=== PATIENT | male | born 2000 | race African-American/Black ===

== ENCOUNTER 2021-01-18 01:13 | Emergency (ER) | payer OTHER ==
[~2021-01-18] VITALS: Ht 182.8 cm; Wt 70.3 kg
--- NOTE | 2021-01-18 01:39 | ED Abdominal Pain ---
General Stated Complaint: VOMITING X-3 DAYS Source of Information: Patient Exam Limitations: No Limitations History of Present Illness Date Seen by Provider: January 18, 2021 Time Seen by Provider: 01:30 Initial Comments Patient is a 20-year-old male who presents to the emergency room with a chief complaint of abdominal pain, nausea and vomiting over the last 3 days. Patient states that he went to a track meet in [place] 3 days ago and afterwards became very nauseated and started having vomiting. Patient states he went to an emergency department there and was given some nausea medicines but they did not help. Patient states he is continued to have nausea and vomiting. No diarrhea. He states his last bowel movement was a couple of days ago. He thinks he is urinating a little bit less than normal. He is not able to hold down any food or fluids. He takes no medicines he has no chronic medical conditions. He is not a diabetic that he is aware of. All other review of systems reviewed and negative except as stated above. Timing/Duration: 2-3 Days Severity/Quality: Cramping Location: Generalized Abdomen Radiation: No Radiation Activities at Onset: None Associated Symptoms: Nausea/Vomiting Allergies and Home Medications Allergies Coded Allergies: No Known Drug Allergies (Unverified , 01/18/21) Patient Home Medication List Home Medication List Reviewed: Yes Review of Systems Review of Systems Constitutional: see HPI EENTM: No Symptoms Reported Respiratory: No Symptoms Reported Cardiovascular: No Symptoms Reported Gastrointestinal: Abdominal Pain, Nausea, Poor Appetite, Vomiting Genitourinary: Other (Decreased urination) Musculoskeletal: no symptoms reported Skin: no symptoms reported All Other Systems Reviewed Negative Unless Noted: Yes Physical Exam Vital Signs Vital Signs - First Documented 01/18/21 01:30 Temp 35.6 Pulse 60 Resp 18 B/P (MAP) 174/74 (107) Pulse Ox 99 O2 Delivery Room Air Capillary Refill : Height/Weight/BMI Height: '" Weight: lbs. oz. kg; BMI Method: General Appearance: WD/WN, mild distress HEENT: other (Dry oral mucosa) Neck: normal inspection Respiratory: lungs clear, normal breath sounds, no respiratory distress, no accessory muscle use Cardiovascular: regular rate, rhythm Gastrointestinal: abnormal bowel sounds (Hypoactive), guarding, tenderness Extremities: normal range of motion, non-tender, normal inspection Neurologic/Psychiatric: alert, normal mood/affect, oriented x 3 Skin: normal color, warm/dry Progress/Results/Core Measures Results/Orders Lab Results Laboratory Tests Test 01/18/21 01:40 01/18/21 03:12 Range/Units White Blood Count 12.2 H 4.3-11.0 10^3/uL Red Blood Count 5.35 4.30-5.52 10^6/uL Hemoglobin 14.7 13.3-17.7 g/dL Hematocrit 45 40-54 % Mean Corpuscular Volume 83 80-99 fL Mean Corpuscular Hemoglobin 28 25-34 pg Mean Corpuscular Hemoglobin Concent 33 32-36 g/dL Red Cell Distribution Width 12.5 10.0-14.5 % Platelet Count 492 H 130-400 10^3/uL Mean Platelet Volume 9.1 9.0-12.2 fL Immature Granulocyte % (Auto) 0 % Neutrophils (%) (Auto) 64 42-75 % Lymphocytes (%) (Auto) 27 12-44 % Monocytes (%) (Auto) 7 0-12 % Eosinophils (%) (Auto) 1 0-10 % Basophils (%) (Auto) 1 0-10 % Neutrophils # (Auto) 7.9 H 1.8-7.8 10^3/uL Lymphocytes # (Auto) 3.2 1.0-4.0 10^3/uL Monocytes # (Auto) 0.9 0.0-1.0 10^3/uL Eosinophils # (Auto) 0.1 0.0-0.3 10^3/uL Basophils # (Auto) 0.1 0.0-0.1 10^3/uL Immature Granulocyte # (Auto) 0.1 0.0-0.1 10^3/uL Sodium Level 136 135-145 MMOL/L Potassium Level 4.0 3.6-5.0 MMOL/L Chloride Level 97 L 98-107 MMOL/L Carbon Dioxide Level 25 21-32 MMOL/L Anion Gap 14 5-14 MMOL/L Blood Urea Nitrogen 18 7-18 MG/DL Creatinine 1.51 H 0.60-1.30 MG/DL Estimat Glomerular Filtration Rate > 60 BUN/Creatinine Ratio 12 Glucose Level 100 70-105 MG/DL Calcium Level 9.7 8.5-10.1 MG/DL Corrected Calcium 9.5 8.5-10.1 MG/DL Total Bilirubin 2.4 H 0.1-1.0 MG/DL Aspartate Amino Transf (AST/SGOT) 41 H 5-34 U/L Alanine Aminotransferase (ALT/SGPT) 42 0-55 U/L Alkaline Phosphatase 99 40-136 U/L Total Creatine Kinase 873 H 30-200 U/L Total Protein 7.9 6.4-8.2 GM/DL Albumin 4.3 3.2-4.5 GM/DL Urine Color YELLOW Urine Clarity CLEAR Urine pH 7.0 5-9 Urine Specific Alexander 1.020 1.016-1.022 Urine Protein NEGATIVE NEGATIVE Urine Glucose (UA) NEGATIVE NEGATIVE Urine Ketones 2+ H NEGATIVE Urine Nitrite NEGATIVE NEGATIVE Urine Bilirubin NEGATIVE NEGATIVE Urine Urobilinogen 2.0 < = 1.0 MG/DL Urine Leukocyte Esterase NEGATIVE NEGATIVE Urine RBC (Auto) NEGATIVE NEGATIVE Urine RBC NONE /HPF Urine WBC NONE /HPF Urine Squamous Epithelial Cells 0-2 /HPF Urine Crystals NONE /LPF Urine Bacteria NEGATIVE /HPF Urine Casts NONE /LPF Urine Mucus SMALL H /LPF Urine Culture Indicated NO My Orders Orders - ZAN VELASQUEZ MD Ed Iv/Invasive Line Start (01/18/21 01:36) Cbc With Automated Diff (01/18/21 01:36) Comprehensive Metabolic Panel (01/18/21 01:36) Creatine Kinase (01/18/21 01:36) Ua Culture If Indicated (01/18/21 01:36) Ns Iv 1000 Ml (Sodium Chloride 0.9%) (01/18/21 01:45) Ondansetron Injection (Zofran Injectio (01/18/21 01:45) Fentanyl Inj (Sublimaze Injection) (01/18/21 01:45) Ns Iv 1000 Ml (Sodium Chloride 0.9%) (01/18/21 02:30) Medications Given in ED Current Medications Medications Dose Ordered Sig/Cam Route Start Time Stop Time Status Last Admin Dose Admin Fentanyl Citrate 25 mcg ONCE ONCE IVP 01/18/21 01:45 01/18/21 01:46 DC 01/18/21 01:48 25 MCG Ondansetron HCl 8 mg ONCE ONCE IVP 01/18/21 01:45 01/18/21 01:46 DC 01/18/21 01:47 8 MG Vital Signs/I&O 01/18/21 01:30 Temp 35.6 Pulse 60 Resp 18 B/P (MAP) 174/74 (107) Pulse Ox 99 O2 Delivery Room Air Departure Impression Primary Impression: Dehydration Additional Impression: Acute nausea with nonbilious vomiting Disposition: HOME, SELF-CARE Condition: Stable Departure-Patient Inst. Decision time for Depature: 04:12 Referrals: [facility] (PCP/Family) Primary Care Physician Patient Instructions: Dehydration, Adult (DC) Add. Discharge Instructions: Use the Zofran every 8 hours as needed for nausea and vomiting. Drink plenty of fluids to stay well-hydrated. Follow-up with the [facility] in 1 to 2 days. Come back to the emergency room for any worsening symptoms of nausea, vomiting, fever pain or any other emergent concerns. Scripts Ondansetron (Ondansetron Odt) 4 Mg Tab.rapdis 4 MG PO Q8H PRN for NAUSEA/VOMITING, #15 TAB 0 Refills Prov: ZAN VELASQUEZ MD 01/18/21 ZAN VELASQUEZ MD January 18, 2021 01:39
[2021-01-18] MEDS ORDERED: ONDANSETRON 4 MG/2 ML (SDV) Z0FRAN IVP ONE (01:45)
[2021-01-18] MEDS ORDERED: fentaNYL INJ 100 MCG/2 ML AMP IVP ONE (01:45)
[2021-01-18] MEDS: NS IV 1000 ML 1,000 ML IV SCH ×2 (01:47→03:17)
[2021-01-18 01:49] LABS: BASOPHILS # (AUTO) 0.1 10^3/uL (0.0-0.1); BASOPHILS % (AUTO) 1 % (0-10); EOSINOPHILS # (AUTO) 0.1 10^3/uL (0.0-0.3); EOSINOPHILS % (AUTO) 1 % (0-10); HEMATOCRIT 45 % (40-54); HEMOGLOBIN 14.7 g/dL (13.3-17.7); LYMPHOCYTES # (AUTO) 3.2 10^3/uL (1.0-4.0); LYMPHOCYTES % (AUTO) 27 % (12-44); MEAN CORPUSCULAR HEMOGLOBIN 28 pg (25-34); MEAN CORPUSCULAR HGB CONC 33 g/dL (32-36); MEAN CORPUSCULAR VOLUME 83 fL (80-99); MEAN PLATELET VOLUME 9.1 fL (9.0-12.2); MONOCYTES # (AUTO) 0.9 10^3/uL (0.0-1.0); MONOCYTES % (AUTO) 7 % (0-12); NEUTROPHILS # (AUTO) 7.9 10^3/uL (1.8-7.8); NEUTROPHILS % (AUTO) 64 % (42-75); PLATELET COUNT 492 10^3/uL (130-400); WHITE BLOOD COUNT 12.2 10^3/uL (4.3-11.0)
[2021-01-18 01:56] LABS: ALBUMIN 4.3 GM/DL (3.2-4.5)
[2021-01-18 01:57] LABS: CHLORIDE 97 MMOL/L (98-107); SODIUM 136 MMOL/L (135-145)
[2021-01-18 01:58] LABS: CALCIUM 9.7 MG/DL (8.5-10.1)
[2021-01-18 01:59] LABS: GLUCOSE 100 MG/DL (70-105); TOTAL PROTEIN 7.9 GM/DL (6.4-8.2)
[2021-01-18 02:00] LABS: CARBON DIOXIDE 25 MMOL/L (21-32)
[2021-01-18 02:01] LABS: BILIRUBIN,TOTAL 2.4 MG/DL (0.1-1.0)
[2021-01-18 02:02] LABS: ALKALINE PHOSPHATASE 99 U/L (40-136)
[2021-01-18 02:03] LABS: CREATININE SERUM 1.51 MG/DL (0.60-1.30); GFR ESTIMATED > 60
[2021-01-18 02:04] LABS: BUN/CREATININE RATIO 12
[2021-01-18 02:05] LABS: ALANINE AMINOTRANSFERASE 42 U/L (0-55)
[2021-01-18 02:06] LABS: CREATINE KINASE 873 U/L (30-200)
[2021-01-18] MEDS ORDERED: NS IV 1000 ML 1,000 ML IV SCH (02:30)
[2021-01-18 03:23] LABS: BILIRUBIN,URINE NEGATIVE (NEGATIVE); CLARITY,URINE CLEAR; COLOR,URINE YELLOW; GLUCOSE, URINE (UA) NEGATIVE (NEGATIVE); KETONES,URINE 2+ (NEGATIVE); LEUKOCYTE ESTERASE ,URINE NEGATIVE (NEGATIVE); NITRITE,URINE NEGATIVE (NEGATIVE); PROTEIN,URINE NEGATIVE (NEGATIVE)
[2021-01-18 03:29] LABS: BACTERIA,URINE NEGATIVE /HPF; SQUAMOUS EPITHELIAL CELL,UR 0-2 /HPF
[2021-01-18] MEDS ORDERED: ONDA4TAB11 PO (04:14)
[2021-01-18 04:30] VITALS: BP 143/88
== END 2021-01-18 04:33 | disposition home or self-care (01) ==
LOC: ER 01:17
DX: E86.0 Dehydration (principal); R10.84 Generalized abdominal pain
CPT/HCPCS: 36415; 80053; 81000; 82550; 85025

== ENCOUNTER 2021-01-19 23:11 | Emergency (ER) | payer OTHER ==
[~2021-01-19] VITALS: Ht 182.9 cm; Wt 70.5 kg
[~2021-01-19 23:11] MED LIST: ONDA4TAB11 PO
--- NOTE | 2021-01-20 00:38 | ED Abdominal Pain ---
General Chief Complaint: Abdominal/GI Problems Stated Complaint: NAUSEA,VOMITING Source of Information: Patient Exam Limitations: No Limitations (AARON ANTONIO STUDENT) History of Present Illness Date Seen by Provider: January 20, 2021 Time Seen by Provider: 00:20 Initial Comments Pt presents to ED via private conveyance with complaint of nausea, vomiting, and abd pain. He states that it started on Saturday and he was seen at the [facility] where he was diagnosed with Cannabinoid Hyperemesis Syndrome. He complains of 10/10 periumbilical pain, denies radiation. Last bowel movement was Saturday. He has not been able to keep solids down since his symptoms started, but is able to drink fluids. He reports associated lightheadedness and SOB. Hot showers help alleviate his symptoms, but states that he didn't notice a diff erence with the medications given to him, which he can't recall. He last smoked marijuana prior to onset of symptoms on Saturday, and has a 2year history of smoking marijuana but no prior similar incidents. Timing/Duration: 5-6 Days Severity/Quality: Severe, Aching Location: Periumbilical Radiation: No Radiation Modifying Factors: Improves With Other (hot showers alleviate) Associated Symptoms: No Chest Pain, No Fever/Chills, No Headache; Nausea/Vomiting, Shortness of Air (AARON ANTONIO STUDENT) Allergies and Home Medications Allergies Coded Allergies: No Known Drug Allergies (Unverified , 01/18/21) Home Medications Ondansetron 4 Mg Tab.rapdis, 4 MG PO Q8H PRN for NAUSEA/VOMITING Prescribed by: ZAN VELASQUEZ on 01/18/21 0414 Promethazine HCl 25 Mg Tablet, 25 MG PO Q6H PRN for NAUSEA/VOMITING Prescribed by: NIKKI ARCEO on 01/20/21 0324 Patient Home Medication List Home Medication List Reviewed: Yes (AARON ANTONIO STUDENT) Review of Systems Review of Systems Constitutional: No chills, No fever; other (lightheadedness) EENTM: No Blurred Vision, No Double Vision, No Eye Pain, No Ear Pain Respiratory: Denies Cough; Shortness of Air Cardiovascular: Denies Chest Pain, Denies Edema; Lightheadedness; Denies P alpitations Gastrointestinal: Denies Abdomen Distended; Abdominal Pain, Constipated (last BM on Saturday, 5 days ago); Denies Diarrhea; Nausea, Vomiting Genitourinary: Frequency, Hematuria Musculoskeletal: No back pain, No joint pain, No muscle pain Skin: No change in color, No rash Psychiatric/Neurological: Denies Headache, Denies Numbness, Denies Paresthesia, Denies Tingling, Denies Weakness (AARON ANTONIO) All Other Systems Reviewed Negative Unless Noted: Yes (AARON ANTONIO) Past Qggjqsk-Iorlkb-Rphxuu Hx Past Med/Social Hx: Reviewed Nursing Past Med/Soc Hx (AARON ANTONIO) Patient Social History Recent Hopitalizations: No (AARON ANTONIO) Alcohol Use: Denies Use Smoking Status: Never a Smoker (NIKKI ARCEO) Immunizations Up To Date PED Vaccines UTD: Yes (AARON ANTONIO) Seasonal Allergies Seasonal Allergies: No (AARON ANTONIO) Past Medical History Surgeries: Yes (LEFT KNEE) Orthopedic Respiratory: No Cardiac: No Neurological: No Genitourinary: No Gastrointestinal: No Musculoskeletal: No Endocrine: No HEENT: No Cancer: No Psychosocial: No Blood Disorders: No (AARON ANTONIO) Physical Exam Vital Signs Vital Signs - First Documented 01/19/21 23:55 Temp 37.3 Pulse 71 Resp 18 B/P (MAP) 176/102 (126) Pulse Ox 100 O2 Delivery Room Air (NIKKI ARCEO) Vital Signs Capillary Refill : (AARON ANTONIO) Height/Weight/BMI Height: '" Weight: lbs. oz. kg; 21.00 BMI Method: General Appearance: WD/WN, mild distress HEENT: PERRL/EOMI, normal ENT inspection Neck: non-tender, full range of motion, supple, normal inspection Respiratory: chest non-tender, lungs clear, normal breath sounds, no respiratory distress, no accessory muscle use Peripheral Pulses: 2+ Dorsalis Pedis (R), 2+ Left Dors-Pedis (L), 2+ Radial Pulses (R), 2+ Radial Pulses (L) Gastrointestinal: normal bowel sounds, guarding, tenderness (periumbilical) Rectal: deferred Extremities: normal range of motion, non-tender, normal inspection, normal capillary refill Back: normal inspection, no CVA tenderness, no vertebral tenderness Neurologic/Psychiatric: no motor/sensory deficits, alert, normal mood/affect, oriented x 3 Skin: normal color, warm/dry Lymphatic: no adenopathy (AARON ANTONIO MED STUDENT) Progress/Results/Core Measures Results/Orders Lab Results Laboratory Tests Test 01/20/21 00:20 Range/Units White Blood Count 9.8 4.3-11.0 10^3/uL Red Blood Count 5.56 H 4.30-5.52 10^6/uL Hemoglobin 15.3 13.3-17.7 g/dL Hematocrit 47 40-54 % Mean Corpuscular Volume 84 80-99 fL Mean Corpuscular Hemoglobin 28 25-34 pg Mean Corpuscular Hemoglobin Concent 33 32-36 g/dL Red Cell Distribution Width 12.4 10.0-14.5 % Platelet Count 469 H 130-400 10^3/uL Mean Platelet Volume 10.3 9.0-12.2 fL Immature Granulocyte % (Auto) 0 % Neutrophils (%) (Auto) 75 42-75 % Lymphocytes (%) (Auto) 20 12-44 % Monocytes (%) (Auto) 4 0-12 % Eosinophils (%) (Auto) 0 0-10 % Basophils (%) (Auto) 0 0-10 % Neutrophils # (Auto) 7.3 1.8-7.8 10^3/uL Lymphocytes # (Auto) 1.9 1.0-4.0 10^3/uL Monocytes # (Auto) 0.4 0.0-1.0 10^3/uL Eosinophils # (Auto) 0.0 0.0-0.3 10^3/uL Basophils # (Auto) 0.0 0.0-0.1 10^3/uL Immature Granulocyte # (Auto) 0.0 0.0-0.1 10^3/uL Sodium Level 139 135-145 MMOL/L Potassium Level 3.7 3.6-5.0 MMOL/L Chloride Level 100 98-107 MMOL/L Carbon Dioxide Level 24 21-32 MMOL/L Anion Gap 15 H 5-14 MMOL/L Blood Urea Nitrogen 11 7-18 MG/DL Creatinine 1.43 H 0.60-1.30 MG/DL Estimat Glomerular Filtration Rate > 60 BUN/Creatinine Ratio 8 Glucose Level 89 70-105 MG/DL Calcium Level 10.0 8.5-10.1 MG/DL Corrected Calcium 8.5-10.1 MG/DL Total Bilirubin 2.8 H 0.1-1.0 MG/DL Aspartate Amino Transf (AST/SGOT) 117 H 5-34 U/L Alanine Aminotransferase (ALT/SGPT) 59 H 0-55 U/L Alkaline Phosphatase 103 40-136 U/L C-Reactive Protein High Sensitivity 0.10 0.00-0.50 MG/DL Total Protein 8.8 H 6.4-8.2 GM/DL Albumin 4.8 H 3.2-4.5 GM/DL Lipase 11 8-78 U/L (NIKKI ARCEO) My Orders Orders - NIKKI ARCEO Cbc With Automated Diff (01/20/21 01:09) Comprehensive Metabolic Panel (01/20/21 01:09) Hs C Reactive Protein (01/20/21 01:09) Lipase (01/20/21 01:09) Ed Iv/Invasive Line Start (01/20/21 01:09) Lactated Ringers (Lr 1000 Ml Iv Solution (01/20/21 01:15) Ondansetron Injection (Zofran Injectio (01/20/21 01:15) Fentanyl Inj (Sublimaze Injection) (01/20/21 01:30) Ct Abdomen/Pelvis W (01/20/21 01:22) Morphine Injection (Morphine Injection (01/20/21 01:39) Iohexol Injection (Omnipaque 350 Mg/Ml 1 (01/20/21 02:00) Received Contrast (Hold Metformin- Contr (01/20/21 02:00) Sodium Chloride Flush (Catheter Flush Sy (01/20/21 02:00) Ns (Ivpb) (Sodium Chloride 0.9% Ivpb Bag (01/20/21 02:00) (NIKKI ARCEO) Medications Given in ED Current Medications Medications Dose Ordered Sig/Cam Route Start Time Stop Time Status Last Admin Dose Admin Fentanyl Citrate 50 mcg ONCE ONCE IVP 01/20/21 01:30 01/20/21 01:31 DC 01/20/21 01:31 50 MCG Iohexol 100 ml ONCE ONCE IV 01/20/21 02:00 01/20/21 02:01 DC 01/20/21 02:02 88 ML Lactated Ringer's 1,000 ml @ 0 mls/hr Q0M ONCE IV 01/20/21 01:15 01/20/21 01:16 DC 01/20/21 01:15 0 MLS/HR Ondansetron HCl 8 mg ONCE ONCE IVP 01/20/21 01:15 01/20/21 01:16 DC 01/20/21 01:15 8 MG Sodium Chloride 10 ml NEEDED PRN IV 01/20/21 02:00 01/20/21 03:45 DC 01/20/21 02:02 10 ML Sodium Chloride 100 ml ONCE ONCE IV 01/20/21 02:00 01/20/21 02:01 DC 01/20/21 02:02 80 ML (NIKKI ARCEO) Vital Signs/I&O 01/19/21 01/20/21 23:55 03:40 Temp 37.3 36.9 Pulse 71 56 Resp 18 15 B/P (MAP) 176/102 (126) 130/66 (126) Pulse Ox 100 99 O2 Delivery Room Air Room Air (NIKKI RACEO) Progress Progress Note #1: Time: 01:20 Progress Note I attest that 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 Patient has 10 of 10 pain periumbilical going on for the past 5days despite multiple visits to ERs and the [facility]. While he does have the confounding use of cannabis and has been labeled with cannabis hyperemesis syndrome he is having some periumbilical tenderness and significant malaise and complaint of chills so I would like to go ahead and complete some labs including a lipase and get a CT of his abdomen and pelvis. 50 mcg of fentanyl as well as 8 mg Zofran and a liter of lactated Ringer's to start. Differential includes appendicitis, bowel less likely . Progress Note #2: Time: 03:21 Progress Note After the initial dose of pain medicine he is not having any nausea pain or symptoms. He is comfortable and ready to go home. He is in no material deterioration during his ER stay. We did detect that his bilirubin is mildly elevated and suggested him to follow-up with Dr. Buckley to have his gallbladder examined. We did discuss that he could still have some viral gastroenteritis versus a cannabis hyperemesis syndrome and will send him on some Phenergan since the Zofran is not helping. (NIKKI ARCEO) Diagnostic Imaging Diagonstic Imaging: CT Plain Films/CT/US/NM/MRI: abdomen, pelvis Comments No acute abnormality CT abdomen pelvis. Reviewed: Reviewed [place] Study, Reviewed by Me (NIKKI ARCEO) Departure Impression Primary Impression: Abdominal pain Qualified Codes: R10.33 - Periumbilical pain Disposition: HOME, SELF-CARE Condition: Stable Departure-Patient Inst. Decision time for Depature: 03:15 (NIKKI ARCEO) Referrals: TIFFANY BUCKLEY DO [facility] (PCP) Primary Care Physician Patient Instructions: Abdominal Pain, Adult ED Add. Discharge Instructions: You could not discover anything emergently dangerous about your abdominal pain tonight. Possibilities include a viral gastroenteritis, cannabis hyperemesis syndrome, your gallbladder. I would recommend that you stick to a bland diet with lots of fluids to drink. Avoid dairy, fats and spicy foods for the next couple weeks. Call Dr. Buckley, general surgery at his clinic this morning and request follow- up appointment next week to further work-up your symptoms in the clinic. Pantoprazole 40 mg daily. Zofran as prescribed. Phenergan 1 tablet every 6 hours as necessary for breakthrough nausea. It may cause some drowsiness. If you have pain try Rolaids, Tums, Maalox, Mylanta etc. Tylenol and Motrin as necessary for pain. All discharge instructions reviewed with patient and/or family. Voiced understanding. Scripts Promethazine HCl (Promethazine Tablet) 25 Mg Tablet 25 MG PO Q6H PRN for NAUSEA/VOMITING, #15 TAB 0 Refills Prov: NIKKI ARCEO 01/20/21 Work/School Note: Work Release Form Date Seen in the Emergency Department: January 20, 2021 Return to Work: January 23, 2021 Restrictions: No Restrictions Copy Copies To 1: TIFFANY BUCKLEY J[facility]NN[facility] ST[facility] January 20, 2021 00:38 NIKKI ARCEO January 20, 2021 01:21
[2021-01-20] MEDS ORDERED: ONDANSETRON 4 MG/2 ML (SDV) Z0FRAN IVP ONE (01:15)
[2021-01-20] MEDS ORDERED: LACTATED RINGERS 1,000 ML IV ONE (01:15)
[2021-01-20 01:16] LABS: BASOPHILS % (AUTO) 0 % (0-10); EOSINOPHILS % (AUTO) 0 % (0-10); HEMATOCRIT 47 % (40-54); HEMOGLOBIN 15.3 g/dL (13.3-17.7); LYMPHOCYTES # (AUTO) 1.9 10^3/uL (1.0-4.0); LYMPHOCYTES % (AUTO) 20 % (12-44); MEAN CORPUSCULAR HEMOGLOBIN 28 pg (25-34); MEAN CORPUSCULAR HGB CONC 33 g/dL (32-36); MEAN CORPUSCULAR VOLUME 84 fL (80-99); MEAN PLATELET VOLUME 10.3 fL (9.0-12.2); MONOCYTES # (AUTO) 0.4 10^3/uL (0.0-1.0); MONOCYTES % (AUTO) 4 % (0-12); NEUTROPHILS # (AUTO) 7.3 10^3/uL (1.8-7.8); NEUTROPHILS % (AUTO) 75 % (42-75); PLATELET COUNT 469 10^3/uL (130-400); WHITE BLOOD COUNT 9.8 10^3/uL (4.3-11.0)
[2021-01-20 01:18] LABS: ALBUMIN 4.8 GM/DL (3.2-4.5); CHLORIDE 100 MMOL/L (98-107); POTASSIUM 3.7 MMOL/L (3.6-5.0); SODIUM 139 MMOL/L (135-145)
[2021-01-20 01:20] LABS: GLUCOSE 89 MG/DL (70-105)
[2021-01-20 01:21] LABS: TOTAL PROTEIN 8.8 GM/DL (6.4-8.2)
[2021-01-20 01:22] LABS: BILIRUBIN,TOTAL 2.8 MG/DL (0.1-1.0); CARBON DIOXIDE 24 MMOL/L (21-32)
[2021-01-20 01:24] LABS: ALKALINE PHOSPHATASE 103 U/L (40-136); CREATININE SERUM 1.43 MG/DL (0.60-1.30); GFR ESTIMATED > 60
[2021-01-20 01:25] LABS: BUN/CREATININE RATIO 8
[2021-01-20 01:27] LABS: ALANINE AMINOTRANSFERASE 59 U/L (0-55); LIPASE 11 U/L (8-78)
[2021-01-20] MEDS ORDERED: fentaNYL INJ 100 MCG/2 ML AMP IVP ONE (01:30)
[2021-01-20] MEDS ORDERED: morphine INJ 10 MG/ML 1ML (SYR OR VIAL) IVP STA (01:39)
[2021-01-20] MEDS ORDERED: NS 100 ML (IVPB) BAG IV ONE (02:00)
[2021-01-20] MEDS ORDERED: IOHEXOL 350 MG/ML 100 ML (OMNIPAQUE 350) VIAL IV ONE (02:00)
[2021-01-20] MEDS ORDERED: HOLD METFORMIN - RECEIVED CONTRAST 20 ML VIAL IV SCH (02:00)
[2021-01-20] MEDS ORDERED: CATHETER FLUSH 10 ML SYR IV PRN (02:00)
[2021-01-20] MEDS ORDERED: PROM25TA14 PO (03:24)
[2021-01-20 03:40] VITALS: BP 130/66
--- NOTE | 2021-01-20 06:55 | Diagnostic Imaging Report ---
PROCEDURE: CT abdomen and pelvis with contrast. TECHNIQUE: Multiple contiguous axial images were obtained through the abdomen and pelvis after administration of intravenous contrast. Auto Exposure Controls were utilized during the CT exam to meet ALARA standards for radiation dose reduction. All CT scans use one or more of the following dose optimizing techniques: automated exposure control, MA and/or KvP adjustment based on patient size and exam type or iterative reconstruction. DATE: January 20, 2021. COMPARISON: None. INDICATION: 20-year-old male, abdominal pain, nausea, vomiting. Periumbilical pain. FINDINGS: The visualized portions of the lung bases are clear. The heart is not enlarged. There is no pericardial effusion. The liver is unremarkable in size and contour. There is no identified focal liver lesion. The gallbladder is unremarkable. There is no biliary ductal dilation. The main pancreatic duct is not abnormally dilated. Unremarkable appearance of the pancreatic parenchyma. The spleen is normal in size. The adrenal glands are unremarkable. Unremarkable appearance of the renal parenchyma. The urinary collecting systems are not distended. There is no identified renal or ureteral stone. Urinary bladder is unremarkable. Evaluation is difficult given the paucity of mesenteric fat and poor contrast. Differential is between structures. There are no grossly distended segments of bowel. There is no identified free intraperitoneal air. There is no visualized drainable fluid collection or sizable volume ascites. The appendix is not well seen. There is no identified abnormally enlarged lymph node in the abdomen or pelvis meeting CT size criteria for adenopathy. This is difficult to evaluate given the paucity of mesenteric fat. There is no identified acute bony abnormality. IMPRESSION: CT ABDOMEN AND PELVIS. 1. No identified acute abnormality in the abdomen or pelvis. 2. Evaluation is somewhat limited given the paucity of mesenteric fat. Dictated by: Dictated on workstation # [id number]
== END 2021-01-20 03:45 | disposition home or self-care (01) ==
LOC: EDUNIT# 23:11 → ER 23:13
DX: R10.33 Periumbilical pain (principal); R11.2 Nausea with vomiting, unspecified; R17 Unspecified jaundice
CPT/HCPCS: 36415; 74177; 80053; 83690; 85025; 86141

== ENCOUNTER 2021-01-21 08:16 | Observation (INO) | payer OTHER ==
[~2021-01-21] VITALS: Ht 188 cm; Wt 68.1 kg
[~2021-01-21 08:16] MED LIST changes: +PROM25TA14 PO
[2021-01-21] MEDS ORDERED: fentaNYL INJ 100 MCG/2 ML AMP IVP STA (08:52)
[2021-01-21] MEDS ORDERED: ONDANSETRON 4 MG/2 ML (SDV) Z0FRAN IVP ONE (09:00)
[2021-01-21] MEDS ORDERED: LACTATED RINGERS 1,000 ML IV ONE (09:00)
--- NOTE | 2021-01-21 09:04 | ED Abdominal Pain ---
General Chief Complaint: Abdominal/GI Problems Stated Complaint: STOMACH PAIN Nursing Triage Note: Patient states he has been vomiting for a week. States this began Saturday and since he has been experiencing difficulty sleeping and can't keep anything down. Sepsis Screen: No Definite Risk Source of Information: Patient Exam Limitations: No Limitations History of Present Illness Date Seen by Provider: January 21, 2021 Time Seen by Provider: 08:38 Initial Comments Here with report of continuing nausea and vomiting that has been going on since last Saturday. This is his third visit. States he is unable to keep anything down and having a really tough week. Has had previous labs and CT scan. CT scan did not reveal any significant abnormalities. There was concern that this may be related to cannabis hyperemesis syndrome as he has been previously a daily marijuana user. He is not currently doing that now and has not this week. Denies blood in his urine or stool. States he is not really able to eat. He is not able to drink well. Denies fever chills. Denies breathing problems or pain otherwise. He is hoping for admission as he states he has not been able to tolerate this at home. Timing/Duration: 1 Week, Constant, Getting Worse Severity/Quality: Moderate, Burning Location: Generalized Abdomen Radiation: No Radiation Activities at Onset: None Modifying Factors: Worsens With Eating; Improves With Vomiting Associated Symptoms: No Back Pain, No Chest Pain, No Fever/Chills; Heartburn, Nausea/Vomiting; No Shortness of Air, No Swelling/Mass in Abdomen; Weakness Allergies and Home Medications Allergies Coded Allergies: No Known Drug Allergies (Unverified , 01/18/21) Home Medications Ondansetron 4 Mg Tab.rapdis, 4 MG PO Q8H PRN for NAUSEA/VOMITING Prescribed by: ZAN VELASQUEZ on 01/18/21 0414 Promethazine HCl 25 Mg Tablet, 25 MG PO Q6H PRN for NAUSEA/VOMITING Prescribed by: NIKKI ARCEO on 01/20/21 0324 Patient Home Medication List Home Medication List Reviewed: Yes Review of Systems Review of Systems Constitutional: see HPI; No chills, No fever EENTM: No Nose Congestion, No Throat Pain Respiratory: Denies Cough, Denies Shortness of Air Cardiovascular: Denies Chest Pain, Denies Edema Gastrointestinal: Abdominal Pain, Nausea, Vomiting Genitourinary: No Symptoms Reported Musculoskeletal: no symptoms reported Skin: no symptoms reported All Other Systems Reviewed Negative Unless Noted: Yes Past [id number] Hx Past Med/Social Hx: Reviewed Nursing Past Med/Soc Hx Patient Social History Alcohol Use: Denies Use Drug of Choice: THC Smoking Status: Never a Smoker 2nd Hand Smoke Exposure: No Recent Infectious Disease Expo: No Recent Hopitalizations: No Immunizations Up To Date PED Vaccines UTD: Yes Seasonal Allergies Seasonal Allergies: No Past Medical History Surgeries: Yes (LEFT KNEE) Orthopedic Respiratory: No Cardiac: No Neurological: No Genitourinary: No Gastrointestinal: No Musculoskeletal: No Endocrine: No HEENT: No Cancer: No Psychosocial: No Blood Disorders: No Family Medical History Reviewed Nursing Family Hx Physical Exam Vital Signs Vital Signs - First Documented 01/21/21 08:45 Temp 35.8 Pulse 67 Resp 14 B/P (MAP) 156/106 (123) Pulse Ox 98 O2 Delivery Room Air Capillary Refill : Less Than 3 Seconds Height/Weight/BMI Height: '" Weight: lbs. oz. kg; 21.00 BMI Method: General Appearance: WD/WN, no apparent distress HEENT: PERRL/EOMI, pharynx normal Neck: full range of motion, supple Respiratory: lungs clear, normal breath sounds Cardiovascular: regular rate, rhythm, no murmur Peripheral Pulses: 2+ Dorsalis Pedis (R), 2+ Left Dors-Pedis (L), 2+ Radial Pulses (R), 2+ Radial Pulses (L) Gastrointestinal: soft; No guarding, No rebound; tenderness (Mild diffuse) Extremities: non-tender, normal inspection Back: normal inspection, no CVA tenderness, no vertebral tenderness Neurologic/Psychiatric: alert, oriented x 3 Skin: normal color, warm/dry Progress/Results/Core Measures Results/Orders Lab Results Laboratory Tests Test 01/21/21 08:40 01/21/21 09:38 Range/Units White Blood Count 6.9 4.3-11.0 10^3/uL Red Blood Count 5.65 H 4.30-5.52 10^6/uL Hemoglobin 15.6 13.3-17.7 g/dL Hematocrit 47 40-54 % Mean Corpuscular Volume 83 80-99 fL Mean Corpuscular Hemoglobin 28 25-34 pg Mean Corpuscular Hemoglobin Concent 33 32-36 g/dL Red Cell Distribution Width 12.6 10.0-14.5 % Platelet Count 469 H 130-400 10^3/uL Mean Platelet Volume 9.8 9.0-12.2 fL Immature Granulocyte % (Auto) 0 % Neutrophils (%) (Auto) 78 H 42-75 % Lymphocytes (%) (Auto) 18 12-44 % Monocytes (%) (Auto) 3 0-12 % Eosinophils (%) (Auto) 0 0-10 % Basophils (%) (Auto) 0 0-10 % Neutrophils # (Auto) 5.4 1.8-7.8 10^3/uL Lymphocytes # (Auto) 1.3 1.0-4.0 10^3/uL Monocytes # (Auto) 0.2 0.0-1.0 10^3/uL Eosinophils # (Auto) 0.0 0.0-0.3 10^3/uL Basophils # (Auto) 0.0 0.0-0.1 10^3/uL Immature Granulocyte # (Auto) 0.0 0.0-0.1 10^3/uL Sodium Level 137 135-145 MMOL/L Potassium Level 3.6 3.6-5.0 MMOL/L Chloride Level 99 98-107 MMOL/L Carbon Dioxide Level 25 21-32 MMOL/L Anion Gap 13 5-14 MMOL/L Blood Urea Nitrogen 10 7-18 MG/DL Creatinine 1.51 H 0.60-1.30 MG/DL Estimat Glomerular Filtration Rate > 60 BUN/Creatinine Ratio 7 Glucose Level 96 70-105 MG/DL Calcium Level 9.8 8.5-10.1 MG/DL Corrected Calcium 8.5-10.1 MG/DL Magnesium Level 1.9 1.6-2.4 MG/DL Total Bilirubin 2.9 H 0.1-1.0 MG/DL Aspartate Amino Transf (AST/SGOT) 50 H 5-34 U/L Alanine Aminotransferase (ALT/SGPT) 49 0-55 U/L Alkaline Phosphatase 98 40-136 U/L Total Protein 8.3 H 6.4-8.2 GM/DL Albumin 4.6 H 3.2-4.5 GM/DL Urine Color YELLOW Urine Clarity CLEAR Urine pH 8.5 5-9 Urine Specific [place] 1.020 1.016-1.022 Urine Protein NEGATIVE NEGATIVE Urine Glucose (UA) NEGATIVE NEGATIVE Urine Ketones 2+ H NEGATIVE Urine Nitrite NEGATIVE NEGATIVE Urine Bilirubin NEGATIVE NEGATIVE Urine Urobilinogen 1.0 < = 1.0 MG/DL Urine Leukocyte Esterase NEGATIVE NEGATIVE Urine RBC (Auto) NEGATIVE NEGATIVE Urine RBC RARE /HPF Urine WBC NONE /HPF Urine Squamous Epithelial Cells NONE /HPF Urine Crystals NONE /LPF Urine Bacteria NEGATIVE /HPF Urine Casts NONE /LPF Urine Mucus NEGATIVE /LPF Urine Culture Indicated NO My Orders Orders - RANULFO MUHAMMAD MD Cbc With Automated Diff (01/21/21 08:52) Comprehensive Metabolic Panel (01/21/21 08:52) Magnesium (01/21/21 08:52) Ua Culture If Indicated (01/21/21 08:52) Ed Iv/Invasive Line Start (01/21/21 08:52) Lactated Ringers (Lr 1000 Ml Iv Solution (01/21/21 09:00) Ondansetron Injection (Zofran Injectio (01/21/21 09:00) Fentanyl Inj (Sublimaze Injection) (01/21/21 08:52) Pantoprazole Injection (Protonix Injecti (01/21/21 10:15) Medications Given in ED Current Medications Medications Dose Ordered Sig/Cam Route Start Time Stop Time Status Last Admin Dose Admin Lactated Ringer's 1,000 ml @ 0 mls/hr Q0M ONCE IV 01/21/21 09:00 01/21/21 09:01 DC 01/21/21 08:58 0 MLS/HR Ondansetron HCl 4 mg ONCE ONCE IVP 01/21/21 09:00 01/21/21 09:01 DC 01/21/21 08:58 4 MG Pantoprazole 40 mg ONCE ONCE IV 01/21/21 10:15 01/21/21 10:16 DC 01/21/21 10:18 40 MG Vital Signs/I&O 01/21/21 08:45 Temp 35.8 Pulse 67 Resp 14 B/P (MAP) 156/106 (123) Pulse Ox 98 O2 Delivery Room Air Blood Pressure Mean: 123 Progress Progress Note : Progress Note Seen and evaluated. IV, labs and UA ordered. I have reviewed previous visits including CT scan and labs. We will give LR 1 L bolus as well as Zofran 4 mg IV and fentanyl 50 mcg IV. Monitor patient. 1007: Patient's total bili is now up to 2.9. CBC is normal otherwise. Creatinine slightly elevated at 1.51. Urine does show ketones. I do believe dehydration is continuing as well as the vomiting given current lab findings. I did discuss the case with Dr. Gallagher. She accepts patient for admission, observation status and we will continue hydration with D5 NS. Protonix 40 mg IV ordered now. This was discussed with the patient who agrees with the plan and is appreciative of the admission as he was quite concerned about going home. Departure Communication (Admissions) Time/Spoke to Admitting Phy: 10:07 Impression Primary Impression: Dehydration Additional Impression: Cannabis hyperemesis syndrome concurrent with and due to cannabis abuse Disposition: ADMITTED INPATIENT Condition: Stable Admissions Decision to Admit Reason: Admit from ER (General) Decision to Admit/Date: January 21, 2021 Time/Decision to Admit Time: 10:07 Departure-Patient Inst. Referrals: [facility] (PCP/Family) Primary Care Physician RANULFO MUHAMMAD MD January 21, 2021 09:04
[2021-01-21 09:09] LABS: BASOPHILS % (AUTO) 0 % (0-10); EOSINOPHILS % (AUTO) 0 % (0-10); HEMATOCRIT 47 % (40-54); HEMOGLOBIN 15.6 g/dL (13.3-17.7); LYMPHOCYTES # (AUTO) 1.3 10^3/uL (1.0-4.0); LYMPHOCYTES % (AUTO) 18 % (12-44); MEAN CORPUSCULAR HEMOGLOBIN 28 pg (25-34); MEAN CORPUSCULAR HGB CONC 33 g/dL (32-36); MEAN CORPUSCULAR VOLUME 83 fL (80-99); MEAN PLATELET VOLUME 9.8 fL (9.0-12.2); MONOCYTES # (AUTO) 0.2 10^3/uL (0.0-1.0); MONOCYTES % (AUTO) 3 % (0-12); NEUTROPHILS # (AUTO) 5.4 10^3/uL (1.8-7.8); NEUTROPHILS % (AUTO) 78 % (42-75); PLATELET COUNT 469 10^3/uL (130-400); WHITE BLOOD COUNT 6.9 10^3/uL (4.3-11.0)
[2021-01-21 09:13] LABS: ALBUMIN 4.6 GM/DL (3.2-4.5); CHLORIDE 99 MMOL/L (98-107); POTASSIUM 3.6 MMOL/L (3.6-5.0); SODIUM 137 MMOL/L (135-145)
[2021-01-21 09:14] LABS: CALCIUM 9.8 MG/DL (8.5-10.1)
[2021-01-21 09:15] LABS: GLUCOSE 96 MG/DL (70-105)
[2021-01-21 09:16] LABS: TOTAL PROTEIN 8.3 GM/DL (6.4-8.2)
[2021-01-21 09:17] LABS: BILIRUBIN,TOTAL 2.9 MG/DL (0.1-1.0); CARBON DIOXIDE 25 MMOL/L (21-32)
[2021-01-21 09:19] LABS: ALKALINE PHOSPHATASE 98 U/L (40-136); CREATININE SERUM 1.51 MG/DL (0.60-1.30); GFR ESTIMATED > 60
[2021-01-21 09:20] LABS: BUN/CREATININE RATIO 7
[2021-01-21 09:22] LABS: ALANINE AMINOTRANSFERASE 49 U/L (0-55); MAGNESIUM 1.9 MG/DL (1.6-2.4)
[2021-01-21 09:47] LABS: BILIRUBIN,URINE NEGATIVE (NEGATIVE); CLARITY,URINE CLEAR; COLOR,URINE YELLOW; GLUCOSE, URINE (UA) NEGATIVE (NEGATIVE); KETONES,URINE 2+ (NEGATIVE); LEUKOCYTE ESTERASE ,URINE NEGATIVE (NEGATIVE); NITRITE,URINE NEGATIVE (NEGATIVE); PH,URINE 8.5 (5-9); PROTEIN,URINE NEGATIVE (NEGATIVE)
[2021-01-21 09:57] LABS: BACTERIA,URINE NEGATIVE /HPF; RBC,URINE RARE /HPF
[2021-01-21] MEDS ORDERED: PANTOPRAZOLE 40 MG (PROTONIX) VIAL IV ONE (10:15)
[2021-01-21 11:38] VITALS: BP 173/97
--- NOTE | 2021-01-21 12:14 | History & Physical-Hospitalist ---
History of Present Illness HPI/Chief Complaint Pt is a 20yoAAM with no significant past medical history who presented to the ER due to nausea and vomiting. This has been going on for about a week now and he has been seen in the ER 3 times this week already. He has been given IVF and improved in the ER and has been compliant with her zofran and phenergan but has still be unable to keep anything down. He has a history of daily marijuana use concerning for cannabis hyperemesis syndrome. He states he has been taking hot showers which have helped some too. He did have a CT of his abdomen on his first ER visit and this was unremarkable. He is being admitted for fluids for dehydration. Source: patient Date Seen 01/21/21 Time Seen by a Provider: 12:09 Attending Physician Ashlee Gallagher MD [facility] Referring Physician Date of Admission January 21, 2021 at 10:21 Home Medications & Allergies Home Medications Reviewed patient Home Medication Reconciliation performed by pharmacy medication reconciliations voice and data technician and/or nursing. Patients Allergies have been reviewed. Allergies Allergies Coded Allergies No Known Drug Allergies (Unverified01/18/21) Past Medical/Social/Family Hx Patient Social History Marrital Status: single Employed/Student: student, full-time Smoking Status: Never a Smoker Substance type: Marijuana Substance frequency: Daily (with the exception of the last week) Past Medical History None Family Medical History Family Hx: None Review of Systems Constitutional: No chills, No fever EENTM: no symptoms reported Respiratory: No cough, No short of breath Cardiovascular: No chest pain, No edema, No palpitations Gastrointestinal: abdominal pain; No hematemesis; nausea, vomiting Genitourinary: no symptoms reported Musculoskeletal: no symptoms reported Skin: no symptoms reported Psychiatric/Neurological: No Symptoms Reported Physical Exam Physical Exam Vital Signs Vital Signs - First Documented 01/21/21 08:45 Temp 35.8 Pulse 67 Resp 14 B/P (MAP) 156/106 (123) Pulse Ox 98 O2 Delivery Room Air Capillary Refill : Less Than 3 Seconds Height, Weight, BMI Height: '" Weight: lbs. oz. kg; 20.38 BMI Method: General Appearance: No Apparent Distress (but appears to not feel well), WD/WN, Thin HEENT: PERRL/EOMI; No Scleral Icterus (L), No Scleral Icterus (R); Other (dry mucous membranes) Neck: Normal Inspection, Supple Respiratory: Lungs Clear, No Accessory Muscle Use, No Respiratory Distress Cardiovascular: Regular Rate, Rhythm, No Murmur Gastrointestinal: Normal Bowel Sounds, Non Tender, Soft Extremity: Normal Capillary Refill, No Calf Tenderness, No Pedal Edema Neurologic/Psychiatric: Alert, Oriented x3 Skin: Normal Color, Warm/Dry Results Results/Procedures Labs Laboratory Tests 01/21/21 08:40 Patient resulted labs reviewed. Imaging: Reviewed Imaging Report (FROM 01/20) Imaging [facility] [place] NAME: JOANNA ANDERS [employer] REC#: [id number] PT STATUS: DEP ER : 2000 PHYSICIAN: NIKKI ARCEO MD ADMIT DATE: 01/19/21/ER Signed Date of Exam:01/20/21 CT ABDOMEN/PELVIS W PROCEDURE: CT abdomen and pelvis with contrast. TECHNIQUE: Multiple contiguous axial images were obtained through the abdomen and pelvis after administration of intravenous contrast. Auto Exposure Controls were utilized during the CT exam to meet ALARA standards for radiation dose reduction. All CT scans use one or more of the following dose optimizing techniques: automated exposure control, MA and/or KvP adjustment based on patient size and exam type or iterative reconstruction. DATE: January 20, 2021. COMPARISON: None. INDICATION: 20-year-old male, abdominal pain, nausea, vomiting. Periumbilical pain. FINDINGS: The visualized portions of the lung bases are clear. The heart is not enlarged. There is no pericardial effusion. The liver is unremarkable in size and contour. There is no identified focal liver lesion. The gallbladder is unremarkable. There is no biliary ductal dilation. The main pancreatic duct is not abnormally dilated. Unremarkable appearance of the pancreatic parenchyma. The spleen is normal in size. The adrenal glands are unremarkable. Unremarkable appearance of the renal parenchyma. The urinary collecting systems are not distended. There is no identified renal or ureteral stone. Urinary bladder is unremarkable. Evaluation is difficult given the paucity of mesenteric fat and poor contrast. Differential is between structures. There are no grossly distended segments of bowel. There is no identified free intraperitoneal air. There is no visualized drainable fluid collection or sizable volume ascites. The appendix is not well seen. There is no identified abnormally enlarged lymph node in the abdomen or pelvis meeting CT size criteria for adenopathy. This is difficult to evaluate given the paucity of mesenteric fat. There is no identified acute bony abnormality. IMPRESSION: CT ABDOMEN AND PELVIS. 1. No identified acute abnormality in the abdomen or pelvis. 2. Evaluation is somewhat limited given the paucity of mesenteric fat. Dictated by: Dictated on workstation # [id number] Dict: 01/20/2136 Trans: 01/20/21918 [facility] [id number] Interpreted by: MERLE VIRAMONTES MD Electronically signed by: MERLE VIRAMONTES MD 01/20/2119 Assessment/Plan Admission Diagnosis Cannabis hyperemesis syndrome Admission Status: Observation Assessment and Plan Cannabis hyperemesis syndrome intractable nausea and vomiting with dehydratin Continue with IVF Zofran and Phenergan prn Fentanyl for pain prn Recommended hot showers as well Recommend marijuana cessation Diagnosis/Problems Diagnosis/Problems (1) Cannabis hyperemesis syndrome concurrent with and due to cannabis abuse Status: Acute (2) Dehydration Status: Acute ASHLEE GALLAGHER MD January 21, 2021 12:14
[2021-01-21] MEDS ORDERED: ONDANSETRON 4 MG/2 ML (SDV) Z0FRAN IVP PRN (12:15)
[2021-01-21] MEDS ORDERED: D5 NS 1000 ML IV SOLUTION 1,000 ML IV SCH (12:30)
[2021-01-21] MEDS ORDERED: PROMETHAZINE INJ 25 MG/ML (PHENERGAN) AMP IV PRN (12:30)
[2021-01-21] MEDS ORDERED: CATHETER FLUSH 10 ML SYR IV PRN (12:30)
[2021-01-21] MEDS: D5 NS 1000 ML IV SOLUTION 1,000 ML IV SCH ×2 (13:22→20:05)
[2021-01-21] MEDS: fentaNYL INJ 100 MCG/2 ML AMP IVP PRN ×2 (13:23→17:14)
[2021-01-21] MEDS: PROMETHAZINE INJ 25 MG/ML (PHENERGAN) AMP IVP PRN (13:24)
[2021-01-21 16:01] VITALS: BP 155/67
[2021-01-21] MEDS: ONDANSETRON 4 MG/2 ML (SDV) Z0FRAN IV PRN (17:14)
[2021-01-21 19:56] VITALS: BP 115/56
[2021-01-21 23:28] VITALS: BP 107/58
[2021-01-22] MEDS: D5 NS 1000 ML IV SOLUTION 1,000 ML IV SCH ×4 (02:45→23:10)
[2021-01-22] MEDS: fentaNYL INJ 100 MCG/2 ML AMP IVP PRN ×2 (04:28→08:22)
[2021-01-22] MEDS: ONDANSETRON 4 MG/2 ML (SDV) Z0FRAN IV PRN (04:28)
[2021-01-22 04:30] VITALS: BP 124/69
[2021-01-22 04:58] LABS: BASOPHILS % (AUTO) 1 % (0-10); EOSINOPHILS # (AUTO) 0.2 10^3/uL (0.0-0.3); EOSINOPHILS % (AUTO) 2 % (0-10); HEMATOCRIT 47 % (40-54); HEMOGLOBIN 14.7 g/dL (13.3-17.7); LYMPHOCYTES # (AUTO) 2.7 10^3/uL (1.0-4.0); LYMPHOCYTES % (AUTO) 34 % (12-44); MEAN CORPUSCULAR HEMOGLOBIN 27 pg (25-34); MEAN CORPUSCULAR HGB CONC 32 g/dL (32-36); MEAN CORPUSCULAR VOLUME 87 fL (80-99); MEAN PLATELET VOLUME 9.8 fL (9.0-12.2); MONOCYTES # (AUTO) 0.5 10^3/uL (0.0-1.0); MONOCYTES % (AUTO) 6 % (0-12); NEUTROPHILS # (AUTO) 4.7 10^3/uL (1.8-7.8); NEUTROPHILS % (AUTO) 58 % (42-75); PLATELET COUNT 373 10^3/uL (130-400); WHITE BLOOD COUNT 8.1 10^3/uL (4.3-11.0)
[2021-01-22 05:15] LABS: BUN/CREATININE RATIO 6; CALCIUM 8.3 MG/DL (8.5-10.1); CARBON DIOXIDE 27 MMOL/L (21-32); CHLORIDE 104 MMOL/L (98-107); CREATININE SERUM 1.36 MG/DL (0.60-1.30); GFR ESTIMATED > 60; GLUCOSE 85 MG/DL (70-105); POTASSIUM 3.6 MMOL/L (3.6-5.0); SODIUM 137 MMOL/L (135-145)
[2021-01-22] MEDS: PROMETHAZINE INJ 25 MG/ML (PHENERGAN) AMP IVP PRN (08:22)
[2021-01-22 08:29] VITALS: BP 171/104
[2021-01-22] MEDS ORDERED: PANTOPRAZOLE 40 MG (PROTONIX) VIAL IV SCH (09:00)
--- NOTE | 2021-01-22 10:20 | Progress Note - Hospitalist ---
Subjective HPI/CC On Admission Date Seen by Provider: January 22, 2021 Time Seen by Provider: 10:17 Pt is a 20yoAAM with no significant past medical history who presented to the ER due to nausea and vomiting. This has been going on for about a week now and he has been seen in the ER 3 times this week already. He has been given IVF and improved in the ER and has been compliant with her zofran and phenergan but has still be unable to keep anything down. He has a history of daily marijuana use concerning for cannabis hyperemesis syndrome. He states he has been taking hot showers which have helped some too. He did have a CT of his abdomen on his first ER visit and this was unremarkable. He is being admitted for fluids for dehydration. Subjective/Events-last exam Pt reports doing better today but had also just received pain medication and nausea medication. Had worsening pain overnight though so surgery consult and surgery SURVEILLANCE OFFICER at bedside. Objective Exam Vital Signs Vital Signs Date Time Temp Pulse Resp B/P (MAP) Pulse Ox O2 Delivery O2 Flow Rate FiO2 01/22/21 08:29 36.8 66 18 171/104 (126) 100 Room Air Capillary Refill : Less Than 3 Seconds General Appearance: No Apparent Distress, WD/WN, Thin Respiratory: Lungs Clear, No Respiratory Distress Cardiovascular: Regular Rate, Rhythm, No Murmur Gastrointestinal: Normal Bowel Sounds, Non Tender, Soft; No Guarding Neurologic/Psychiatric: Alert, Oriented x3 Results/Procedures Lab Laboratory Tests 01/22/21 04:37 Patient resulted labs reviewed. Imaging: Reviewed Imaging Report (FROM 01/20) Assessment/Plan Assessment and Plan Assess & Plan/Chief Complaint Cannabis hyperemesis syndrome intractable nausea and vomiting with dehydration Continue with IVF Zofran and Phenergan prn Fentanyl for pain prn Recommended hot showers as well Recommend marijuana cessation CRP negative, WBC normal Surgery consulted due to persistent pain to evaluate for potential surgical intervention, appreciate assistance Add PPI Diagnosis/Problems Diagnosis/Problems (1) Cannabis hyperemesis syndrome concurrent with and due to cannabis abuse Status: Acute (2) Dehydration Status: Acute ASHLEE PEARCE MD January 22, 2021 10:20
--- NOTE | 2021-01-22 10:40 | Progress Note ---
Standard Progress Note Progress Notes/Assess & Plan Date Seen by a Provider: January 22, 2021 Time Seen by a Provider: 10:00 Progress/Assessment & Plan patient seen and evaluated. 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 also does use THC daily but will stop completely. nausea/vomiting likely secondary to gastritis and smoking. improved since admission. will start protonix iv bid and carafate while admitted then PO daily. MARTHA BAKER MD January 22, 2021 10:40
[2021-01-22] MEDS: SUCRALFATE 1 GM (CARAFATE) TAB PO SCH ×3 (11:19→20:51)
[2021-01-22 11:35] VITALS: BP 123/72
--- NOTE | 2021-01-22 13:33 | CONSULTATION REPORT ---
DATE OF SERVICE: 01/22/2021 ATTENDING PHYSICIAN: Dr. Gallagher. HISTORY OF PRESENT ILLNESS: This is a 20-year-old male who reports for the past week he has had episodes of persistent nausea and vomiting and has presented to the ER 3 times this week. He reports at home, he was not able to keep any food down and reports that he was unable to keep hardly any liquids. He reports that he has received fluids in the ER and reports that he did feel better; however, this would wear off and he would have nausea and vomiting again. He did report some periumbilical pain. CT scan was performed, which was unremarkable. He denied any fever or chills. He does report, however, that he was using marijuana daily until about a week ago when he started. 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 He does report today that he is feeling better and has been able to eat some food with no nausea or vomiting. He does continue to remain afebrile. Upon further questioning, he did report that when he does become nauseous, hot showers do help relieve his nausea. PAST MEDICAL HISTORY: Marijuana use. PAST SURGICAL HISTORY: Left knee arthroscopy. ALLERGIES: No known drug allergies. MEDICATIONS: Zofran 4 mg q.8 hours p.r.n., promethazine 25 mg q.6 hours p.r.n. SOCIAL HISTORY: Positive for marijuana, negative for tobacco smoke. Negative for alcohol. FAMILY HISTORY: Noncontributory. VITAL SIGNS: Blood pressure 124/69, pulse 85, respirations 18, pulse ox 100% on room air, temperature 36.6 degrees Celsius. REVIEW OF SYSTEMS: This is a well-nourished male in no acute distress. He is not experiencing any shortness of breath or difficulty breathing. No chest pain, palpitations or diaphoresis. He has had episodes of nausea and vomiting for the past week as well as pain in the periumbilical region; however, diffuse upon examination. No diarrhea or constipation. No red blood per rectum. No dark tarry stools. No hematemesis or coffee ground emesis. No red blood per rectum. No dark tarry stools. No fever or chills. No recent inadvertent weight loss. PHYSICAL EXAMINATION: CHEST: Clear. Good breath sounds bilaterally. HEART: Regular, no murmurs. EXTREMITIES: No lower extremity edema. Negative Homans sign. HEENT: No scleral icterus. NECK: No cervical lymphadenopathy. ABDOMEN: Soft, nondistended. There is some mild diffuse tenderness upon palpation. No palpable masses. No organomegaly. SKIN: Warm, dry and pink. NEUROLOGIC: Awake, alert and oriented x3. ASSESSMENT AND PLAN: A 20-year-old male with a history of daily cannabis use, who has had persistent nausea and vomiting for the past week, which may be secondary to cannabis hyperemesis syndrome versus possible gastritis. At this time, we will continue with hydration as well as nausea medication as needed and also have him continue with a PPI acid testing manager. He can also proceed with hot showers as needed for the nausea. Job ID: [id number] DocumentID: [id number] Dictated Date: 01/22/2021 10:21:18 Risk Control Analyst Date: 01/22/2021 13:32:44 Dictated By: SHAE CUELLAR APRN
[2021-01-22 15:50] VITALS: BP 125/58
[2021-01-22 19:53] VITALS: BP 136/66
[2021-01-22] MEDS: PANTOPRAZOLE 40 MG (PROTONIX) VIAL IV SCH (20:52)
[2021-01-23 00:04] VITALS: BP 125/72
[2021-01-23 03:48] VITALS: BP 138/77
[2021-01-23 03:51] LABS: HEMATOCRIT 40 % (40-54); HEMOGLOBIN 12.6 g/dL (13.3-17.7); MEAN CORPUSCULAR HEMOGLOBIN 27 pg (25-34); MEAN CORPUSCULAR HGB CONC 32 g/dL (32-36); MEAN CORPUSCULAR VOLUME 86 fL (80-99); MEAN PLATELET VOLUME 9.3 fL (9.0-12.2); PLATELET COUNT 340 10^3/uL (130-400); WHITE BLOOD COUNT 8.5 10^3/uL (4.3-11.0)
[2021-01-23 04:10] LABS: BUN/CREATININE RATIO 7; CALCIUM 7.9 MG/DL (8.5-10.1); CARBON DIOXIDE 26 MMOL/L (21-32); CHLORIDE 107 MMOL/L (98-107); CREATININE SERUM 1.19 MG/DL (0.60-1.30); GFR ESTIMATED > 60; GLUCOSE 98 MG/DL (70-105); SODIUM 140 MMOL/L (135-145)
[2021-01-23] MEDS: D5 NS 1000 ML IV SOLUTION 1,000 ML IV SCH (05:22)
[2021-01-23] MEDS: SUCRALFATE 1 GM (CARAFATE) TAB PO SCH (05:22)
[2021-01-23 07:43] VITALS: BP 126/58
[2021-01-23] MEDS ORDERED: SUCR1TAB36 PO (08:11)
[2021-01-23] MEDS ORDERED: PANT40SU PO (08:11)
--- NOTE | 2021-01-23 08:17 | Discharge Summary ---
Diagnosis/Chief Complaint Date of Admission January 21, 2021 at 10:21 Date of Discharge January 23, 2021 at 10 AM Discharge Date: January 23, 2021 Discharge Time: 10:00 Admission Diagnosis Cannabis hyperemesis syndrome [facility] Discharge Diagnosis Dehydration Cannabis hyperemesis syndrome Win (1) Cannabis hyperemesis syndrome concurrent with and due to cannabis abuse Status: Acute (2) Dehydration Status: Acute Discharge Summary Procedures/Consulations Dr. Miller Discharge Physical Exam Allergies: Coded Allergies: No Known Drug Allergies (Unverified , 01/18/21) Vitals & I&Os Vital Signs Date Time Temp Pulse Resp B/P (MAP) Pulse Ox O2 Delivery O2 Flow Rate FiO2 01/23/21 07:43 36.2 57 16 126/58 (80) 100 Room Air General Appearance: No Apparent Distress, WD/WN HEENT: Normal ENT Inspection Respiratory: Lungs Clear, Normal Breath Sounds, No Accessory Muscle Use, No Respiratory Distress Cardiovascular: Regular Rate, Rhythm, No Edema, No Gallop, No JVD, No Murmur Gastrointestinal: Non Tender, Soft Skin: Normal Color, Warm/Dry Neurologic/Psychiatric: Alert, Oriented x3, No Motor/Sensory Deficits, Normal Mood/Affect, technician support association II-XII Norm as Tested Hospital Course Was the Problem List Reviewed?: Yes Patient was admitted with dehydration and persistent nausea and vomiting. He was aggressively rehydrated and at the time of discharge is eating without problems. He has had no further abdominal pain or vomiting in the last 24 hours. He has been counseled about cessation of marijuana use and will have close follow-up at the [facility]. Counseling is offered. As he says he has a lot going on Labs (last 24 hrs) Laboratory Tests 01/23/21 03:45: White Blood Count 8.5, Red Blood Count 4.60, Hemoglobin 12.6L, Hematocrit 40, Mean Corpuscular Volume 86, Mean Corpuscular Hemoglobin 27, Mean Corpuscular Hemoglobin Concent 32, Red Cell Distribution Width 12.8, Platelet Count 340, Mean Platelet Volume 9.3, Sodium Level 140, Potassium Level 4.0, Chloride Level 107, Carbon Dioxide Level 26, Anion Gap 7, Blood Urea Nitrogen 8, Creatinine 1.19, Estimat Glomerular Filtration Rate > 60, BUN/Creatinine Ratio 7, Glucose Level 98, Calcium Level 7.9L Patient resulted labs reviewed. Pending Labs Laboratory Tests 01/23/21 03:45: White Blood Count 8.5, Red Blood Count 4.60, Hemoglobin 12.6, Hematocrit 40, Mean Corpuscular Volume 86, Mean Corpuscular Hemoglobin 27, Mean Corpuscular Hemoglobin Concent 32, Red Cell Distribution Width 12.8, Platelet Count 340, Mean Platelet Volume 9.3, Sodium Level 140, Potassium Level 4.0, Chloride Level 107, Carbon Dioxide Level 26, Anion Gap 7, Blood Urea Nitrogen 8, Creatinine 1.19, Estimat Glomerular Filtration Rate > 60, BUN/Creatinine Ratio 7, Glucose Level 98, Calcium Level 7.9 Imaging: Reviewed Imaging Report (FROM 01/20) Discussion & Recommendations Discharge Planning: <30 minutes discharge planning Discharge Home Medications: Active Scripts Active Protonix (Pantoprazole Sodium) 40 Mg Granpkt.dr 40 Mg PO DAILY 30 Days Carafate (Sucralfate) 1 Gm Tablet 1 Gm PO ACHS 14 Days Promethazine Tablet (Promethazine HCl) 25 Mg Tablet 25 Mg PO Q6H PRN Ondansetron Odt (Ondansetron) 4 Mg Tab.rapdis 4 Mg PO Q8H PRN Condition at discharge Stable Instructions to patient/family Please see electronic discharge instructions given to patient. SHAWANDA LUEVANO MD January 23, 2021 08:17
[2021-01-23] MEDS: PANTOPRAZOLE 40 MG (PROTONIX) VIAL IV SCH (08:23)
[2021-01-23 08:45] VITALS: BP 126/58
[2021-01-23 09:38] LABS: FREE T4 (FREE THYROXINE) 1.3 NG/DL (0.70-1.48)
== END 2021-01-23 08:45 | disposition home or self-care (01) ==
LOC: EDUNIT# 08:16 → ER 08:17 → 4TH 10:21
PROVIDERS: ADMIT Family Medicine; ATTEND Family Medicine
DX: R11.2 Nausea with vomiting, unspecified (principal); F12.10 Cannabis abuse, uncomplicated; E86.0 Dehydration; Z79.899 Other long term (current) drug therapy
CPT/HCPCS: 36415; 80048; 80053; 81000; 83735; 84439; 84443; 85025; 85027; 86141; G0378